=== PATIENT | male | born 1950 | race Caucasian/White ===

== ENCOUNTER 2018-06-01 11:25 | Outpatient (REF) | payer MEDICARE, SELFPAY ==
[2018-06-01 19:01] LABS: Anion Gap 8.3 mmol/L (3-11); BUN 9 mg/dL (7-18); CO2 26.7 mmol/L (21.0-32.0); CREATININE 1.07 mg/dL (0.70-1.30); Calcium 9.1 mg/dL (8.5-10.1); Chloride 101 mmol/L (98-107); Glucose 107 mg/dL (70-100); Potassium 4.5 mmol/L (3.5-5.1); Sodium 136 mmol/L (136-145)
[2018-06-05 10:00] LABS: PSA, Screening 2.9 ng/ml (0-4.5)
== END 2018-06-01 11:26 ==
LOC: NCHCN 11:25
PROVIDERS: PCP Physician Assistant; Visit Provider Physician Assistant Medical
DX: I10 Essential (primary) hypertension (principal); N40.0 Benign prostatic hyperplasia without lower urinary tract symptoms; R79.89 Other specified abnormal findings of blood chemistry; Z12.5 Encounter for screening for malignant neoplasm of prostate
CPT/HCPCS: 80048; 84153

== ENCOUNTER 2019-08-30 12:49 | Outpatient (REF) | payer MEDICARE, SELFPAY ==
[2019-08-30 20:33] LABS: ALT 24 U/L (16-63); AST 22 U/L (15-37); Albumin 4.4 g/dL (3.4-5.0); Alkaline Phosphatase 67 U/L (46-116); Anion Gap 9.9 mmol/L (3-11); BUN 17 mg/dL (7-18); Bilirubin, Total 1.2 mg/dL (0.2-1.0); CO2 29.1 mmol/L (21.0-32.0); CREATININE 0.97 mg/dL (0.70-1.30); Calcium 10.1 mg/dL (8.5-10.1); Calculated LDL 127 mg/dL; Chloride 96 mmol/L (98-107); Cholesterol 225 mg/dL (50-200); Glucose 120 mg/dL (70-100); HDL Cholesterol 59 mg/dL (40-60); Potassium 4.6 mmol/L (3.5-5.1); Sodium 135 mmol/L (136-145); Total Protein 7.9 g/dL (6.4-8.2); Triglyceride 197 mg/dL (30-150)
[2019-09-03 11:21] LABS: PSA, Screening 6.9 ng/ml (0-4.5)
== END 2019-08-30 13:09 ==
LOC: NCHCN 12:49
PROVIDERS: PCP Physician Assistant; Visit Provider Nurse Practitioner Family
DX: I10 Essential (primary) hypertension (principal); E78.5 Hyperlipidemia, unspecified; R73.09 Other abnormal glucose; N40.0 Benign prostatic hyperplasia without lower urinary tract symptoms; Z12.5 Encounter for screening for malignant neoplasm of prostate
CPT/HCPCS: 80053; 80061; 84153; 83036

== ENCOUNTER 2021-03-24 15:05 | Outpatient (REF) | payer MEDICARE, SELFPAY ==
[2021-03-24 15:54] LABS: Hemoglobin A1C 5.5 % (<5.7)
[2021-03-24 16:04] LABS: ALT 20 U/L (16-63); AST 16 U/L (15-37); Albumin 4.2 g/dL (3.4-5.0); Alkaline Phosphatase 107 U/L (46-116); Anion Gap 9.4 mmol/L (3-11); Bilirubin, Total 0.5 mg/dL (0.2-1.0); CO2 28.6 mmol/L (21.0-32.0); Calcium 9.9 mg/dL (8.5-10.1); Calculated LDL 145 mg/dL (<100); Chloride 101 mmol/L (98-107); Cholesterol 208 mg/dL (<200); Folate 13.6 ng/mL (8.6-20.0); GGT 49 U/L (15-85); Glucose 104 mg/dL (74-106); HDL Cholesterol 33 mg/dL (40-60); Magnesium 1.8 mg/dL (1.8-2.4); Potassium 4.6 mmol/L (3.5-5.1); Sodium 139 mmol/L (136-145); Triglyceride 153 mg/dL (<150); Vitamin B12 505 pg/mL (193-986)
[2021-03-24 16:14] LABS: BUN 73 mg/dL (7-18); Bilirubin, Direct 0.1 mg/dL (0.0-0.2)
== END 2021-03-24 15:06 | disposition home or self-care (01) ==
LOC: NCHCN 15:05
PROVIDERS: PCP Physician Assistant; Visit Provider Nurse Practitioner Family
DX: F10.10 Alcohol abuse, uncomplicated (principal); E78.5 Hyperlipidemia, unspecified; R73.03 Prediabetes
CPT/HCPCS: 80048; 80061; 80076; 82607; 82746; 82977; 83036; 83735

== ENCOUNTER 2021-04-07 15:49 | Outpatient (REF) | payer MEDICARE, SELFPAY ==
[2021-04-07 16:57] LABS: Hemoglobin A1C 6.2 % (<5.7)
[2021-04-07 22:46] LABS: PSA, Screening 4.3 ng/mL (0.0-6.5)
== END 2021-04-07 15:50 | disposition home or self-care (01) ==
LOC: NCHCN 15:49
PROVIDERS: PCP Physician Assistant; Visit Provider Nurse Practitioner Family
DX: R35.0 Frequency of micturition (principal); Z12.5 Encounter for screening for malignant neoplasm of prostate; R73.03 Prediabetes
CPT/HCPCS: 84153; 83036